=== PATIENT | female | born 1985 | race African-American/Black ===

== ENCOUNTER 2021-08-31 07:38 | Emergency (ER) | payer OTHER ==
[2021-08-31 07:48] VITALS: BP 128/83; PULSE 95; TEMP 98.9; BMI 29.3
[2021-08-31] MEDS ORDERED: ACETAMINOPHEN 325 MG TABLET (FP) PO ONE (08:27)
== END 2021-08-31 08:55 | disposition home or self-care (01) ==
LOC: JER 07:38
DX: M79.10 Myalgia, unspecified site (principal); R68.83 Chills (without fever)
CPT/HCPCS: 99283-25; C9803-CS; U0003; U0005